=== PATIENT | female | born 1950 | race Caucasian/White ===

== ENCOUNTER 2022-06-07 16:04 | Outpatient (CLI) | payer MEDICARE, OTHER, SELFPAY ==
[2022-06-07 21:52] LABS: Albumin* 4.6 g/dL (3.3-5.0)
[2022-06-07 21:53] LABS: Chloride* 101 mmol/L (96-114); Potassium* 4.5 mmol/L (3.6-5.1); Sodium* 139 mmol/L (135-149)
[2022-06-07 21:55] LABS: Bilirubin Total* 0.6 mg/dL (0.1-1.5); Carbon Dioxide* 31 mmol/L (20-32); Cholesterol* 171 mg/dL (90-199); Creatinine* 0.7 mg/dL (0.5-1.5); Estimated Glomerular Filt Rate 91 ml/min
[2022-06-07 21:56] LABS: Alanine Aminotransferase* 34 U/L (4-35); Alkaline Phosphatase* 92 U/L (40-150); Aspartate Amino Transferase* 32 U/L (12-35); Blood Urea Nitrogen* 13 mg/dL (7-30); Calcium* 9.8 mg/dL (8.4-10.6); Glucose* 93 mg/dL (60-115); HDL Cholesterol* 95 mg/dL (>=50); LDL Cholesterol Calculated 54 mg/dL (<100); Total Protein* 7.1 g/dL (6.0-8.3); Triglycerides* 110 mg/dL (40-149)
[2022-06-07 22:28] LABS: Thyroid Stimulating Hormone* 0.673 uIU/mL (0.270-4.20)
== END 2022-06-07 16:05 | disposition home or self-care (01) ==
PROVIDERS: PCP Physician Assistant Medical; Visit Provider Physician Assistant Medical
DX: Z00.00 Encounter for general adult medical examination without abnormal findings (principal); E78.5 Hyperlipidemia, unspecified; E03.9 Hypothyroidism, unspecified; G47.9 Sleep disorder, unspecified; K86.89 Other specified diseases of pancreas
CPT/HCPCS: 80053; 80061; 84443

== ENCOUNTER 2022-06-18 14:52 | Outpatient (CLI) | payer MEDICARE, OTHER, SELFPAY ==
--- NOTE | 2022-06-18 15:00 | CRLHL7_ITS ---
For Patients: As a result of the Cures Act, medical imaging exams and procedure reports are released immediately into your electronic medical record. You may view this report before your referring provider. If you have questions, please contact your health care provider. CLINICAL HISTORY: atherosclerosis Comparison: 12/27/2020 TECHNIQUE: The carotid circulations and the vertebral arteries in the neck were examined with decker-scale ultrasound, color-flow and Doppler spectral analysis. Degrees of stenosis were determined using SRU 2002 Consensus Panel Criteria. FINDINGS: Sonographic images demonstrate bilateral atherosclerotic plaque formation, left greater than right, as before. No suspicious soft tissue mass. There was antegrade blood flow demonstrated within the vertebral arteries and the subclavian arteries demonstrated a normal triphasic waveform. The spectral Doppler tracings of the common carotid, internal and external carotid arteries demonstrate no abnormal turbulence or spectral broadening. There was no significant elevation of peak systolic blood flow which would indicate a hemodynamically-significant stenosis by SRU criteria. The ICA/CCA peak systolic velocity ratio measures 1.4 on the right and 1.1 on the left. IMPRESSION: Less than 50 percent stenosis of the internal carotid arteries bilaterally. Bilateral atherosclerotic disease. Dictated by Adrián Dominique MD @ 06/19/2022 9:45:57 AM (Electronically Signed)
--- NOTE | 2022-06-18 16:00 | CRLHL7_ITS ---
For Patients: As a result of the Century Cures Act, medical imaging exams and procedure reports are released immediately into your electronic medical record. You may view this report before your referring provider. If you have questions, please contact your health care provider. INDICATION: Atherosclerosis TECHNIQUE: Ultrasound aorta with color Doppler analysis. COMPARISON: None FINDINGS: The proximal abdominal aorta measures 1.4 centimeter x 1.3 centimeter, mid aorta measures 1.5 centimeter x 0.9 centimeter, distal aorta measures 1.2 centimeter x 1.1 centimeter, right common iliac artery measures 5 centimeter x 0.6 centimeter, and the left common iliac artery measures 0.4 centimeter x 0.6 centimeter. There are no periaortic abnormalities evident. Moderate diffuse atherosclerotic changes. IMPRESSION: Now sign of aneurysm. Moderate diffuse atherosclerotic changes. Dictated by Adrián Danielson MD @ 06/19/2022 8:06:52 AM (Electronically Signed)
== END 2022-06-18 14:53 | disposition home or self-care (01) ==
PROVIDERS: PCP Physician Assistant Medical; Visit Provider Physician Assistant Medical
DX: I65.29 Occlusion and stenosis of unspecified carotid artery (principal); I70.0 Atherosclerosis of aorta
CPT/HCPCS: 76775; 93880

== ENCOUNTER 2022-10-29 15:17 | Outpatient (CLI) | payer MEDICARE, OTHER, SELFPAY | END 2022-10-29 15:18 | disposition home or self-care (01) | PROVIDERS: PCP Physician Assistant Medical; Visit Provider Physician Assistant Medical | DX: N39.0 Urinary tract infection, site not specified (principal); B96.20 Unspecified Escherichia coli [E. coli] as the cause of diseases classified elsewhere | CPT/HCPCS: 87086; 87186 ==

== ENCOUNTER 2023-06-17 14:25 | Outpatient (CLI) | payer MEDICARE, OTHER, SELFPAY | END 2023-06-17 14:26 | disposition home or self-care (01) | PROVIDERS: PCP Physician Assistant Medical; Visit Provider Physician Assistant Medical | DX: E03.9 Hypothyroidism, unspecified (principal); E78.2 Mixed hyperlipidemia | CPT/HCPCS: 80053; 80061; 84443 ==

== ENCOUNTER 2024-07-20 13:02 | Outpatient (CLI) | payer MEDICARE, OTHER, SELFPAY | END 2024-07-20 13:03 | disposition home or self-care (01) | PROVIDERS: PCP Physician Assistant Medical; Referring Provider Physician Assistant Medical; Visit Provider Physician Assistant Medical | DX: E03.9 Hypothyroidism, unspecified (principal); E78.5 Hyperlipidemia, unspecified | CPT/HCPCS: 80053; 80061; 84443 ==

== ENCOUNTER 2024-08-11 08:23 | Outpatient (CLI) | payer MEDICARE, OTHER, SELFPAY ==
[2024-08-11] MEDS: SODIUM CHLORIDE 0.9 % (FLUSH) 10 ML SYRINGE IVF (11:18)
[2024-08-11] MEDS: REGADENOSON 0.4 MG/5 ML SYRINGE IVP (11:18)
--- NOTE | 2024-08-11 13:20 | W.PM.STED ---
Stress Test Note Date Date Seen: 08/11/24 Date of test: 08/11/24 Providers Primary care provider: Catina Yost Stress test physician: Ashley Berrios Stress Test Note Stress test ordered: Lexiscan Indication for test: Dyspnea, known reported atherosclerosis abdominal aorta Stress test medicine: Lexiscan Results discussion: Resting EKG: Sinus rhythm, rate 66 beats per minute. Resting blood pressure: 120/63 Stress test: Patient is consented on a nonwalking Lexiscan that has been ordered and agrees to proceed. She had nausea and sense of some epigastric discomfort but no chest pain with the infusion of the regadenoson. She had no chest pain. She had no noted arrhythmia but did have some PVCs. There was no definitive diagnostic EKG changes of ischemia on this test. Patient had stability of her blood pressure during this test. She is discharged in stable condition to have repeat post stress nuclear images. Impression: Subjectively negative, objectively negative EKG portion of this nonwalking Lexiscan. Follow up suggested: Obtain nuclear images, await this report for full formal diagnostic. Patient discharge in stable condition at this time.
== END 2024-08-11 08:24 | disposition home or self-care (01) ==
LOC: STRESS 08:26
PROVIDERS: PCP Physician Assistant Medical; Visit Provider Physician Assistant Medical
DX: R06.00 Dyspnea, unspecified (principal)
CPT/HCPCS: 78452; 93016; 93017; A9500; J2785

== ENCOUNTER 2024-08-14 12:26 | Outpatient (CLI) | payer MEDICARE, OTHER, SELFPAY ==
--- NOTE | 2024-08-14 13:00 | CRLHL7_ITS ---
For Patients: As a result of the Century Cures Act, medical imaging exams and procedure reports are released immediately into your electronic medical record. You may view this report before your referring provider. If you have questions, please contact your health care provider. Examination: US abdominal aorta Indication: re evaluate for progression, atherosclerosis of aorta. Abdominal aortic aneurysm screening. Technique: Friedman scale and color Doppler images of the aorta and common iliac arteries are obtained. Comparison: 06/18/2022 Findings: Proximal aorta: 2.8 x 2.7 cm Mid aorta: 2.0 x 2.0 cm Distal aorta: 1.5 x 1.5 cm Right common iliac artery: 0.9 x 0.9 cm Left common iliac artery: 0.9 x 0.9 cm Impression: No abdominal aortic aneurysm. Diffuse atherosclerosis noted. Dictated by Adrián Dominique MD @ 08/16/2024 8:55:36 PM (Electronically Signed)
--- NOTE | 2024-08-14 13:45 | CRLHL7_ITS ---
For Patients: As a result of the Century Cures Act, medical imaging exams and procedure reports are released immediately into your electronic medical record. You may view this report before your referring provider. If you have questions, please contact your health care provider. CLINICAL HISTORY: re evaluate for progression TECHNIQUE: The carotid circulations and the vertebral arteries in the neck were examined with decker-scale ultrasound, color-flow and Doppler spectral analysis. Degrees of stenosis were determined using SRU 2002 Consensus Panel Criteria. COMPARISON: 06/18/2022 FINDINGS: Sonographic images demonstrate bilateral atherosclerotic plaque formation without suspicious soft tissue mass. There was antegrade blood flow demonstrated within the vertebral arteries and the subclavian arteries demonstrated a normal triphasic waveform. The spectral Doppler tracings of the common carotid, internal and external carotid arteries demonstrate no abnormal turbulence or spectral broadening. There was significant elevation of peak systolic blood flow within the distal right ICA measuring 141 cm/second which would indicate a hemodynamically-significant stenosis by SRU criteria. The ICA/CCA peak systolic velocity ratio measures 1.9 on the right and 1.2 on the left. IMPRESSION: 50-69 percent stenosis of the right distal ICA. Less than 50 percent stenosis of the left ICA. Dictated by Adrián Dominique MD @ 08/16/2024 8:57:30 PM (Electronically Signed)
== END 2024-08-14 12:27 | disposition home or self-care (01) ==
LOC: US 12:26
PROVIDERS: PCP Physician Assistant Medical; Visit Provider Physician Assistant Medical
DX: Z13.6 Encounter for screening for cardiovascular disorders (principal); I65.29 Occlusion and stenosis of unspecified carotid artery; I70.0 Atherosclerosis of aorta
CPT/HCPCS: 76775; 93880

== ENCOUNTER 2024-08-31 12:58 | Outpatient (CLI) | payer MEDICARE, OTHER, SELFPAY ==
--- NOTE | 2024-08-31 13:00 | CRLHL7_ITS ---
For Patients: As a result of the Century Cures Act, medical imaging exams and procedure reports are released immediately into your electronic medical record. You may view this report before your referring provider. If you have questions, please contact your health care provider. INDICATION: Lung cancer screening. Significant smoking history. TECHNIQUE: Low-dose volumetric helical scanning of the thorax was performed without IV contrast material. Coronal and sagittal reconstructions were obtained. COMPARISON: None FINDINGS: A noncalcified 3 mm right lower lobe nodule is demonstrated on image 113 of series 2. Calcified granuloma is demonstrated in the right lower lobe base Emphysema is demonstrated. Scarring in the posterior right upper lobe and in the right lower lobe superior segment is demonstrated. There is no significant airway abnormality. No pleural effusion is demonstrated. There is no mediastinal or hilar lymph adenopathy. The heart size is normal. Calcified coronary arterial plaque is demonstrated. Images of the upper abdomen are unremarkable. IMPRESSION: 1. Negative for the purpose of lung cancer screening. Lung-RADS CATEGORY 2: BENIGN APPEARANCE OR BEHAVIOR: Continue annual screening with low-dose chest CT in 12 months. 2. Emphysema. Please note that all CT scans at this facility use dose modulation, iterative reconstruction, and/or weight-based dosing when appropriate to reduce radiation dose to as low as reasonably achievable. Dictated by Artemio Norris MD @ 09/01/2024 11:49:00 AM (Electronically Signed)
== END 2024-08-31 12:59 | disposition home or self-care (01) ==
LOC: CT 13:01
PROVIDERS: PCP Physician Assistant Medical; Visit Provider Physician Assistant Medical
DX: Z12.2 Encounter for screening for malignant neoplasm of respiratory organs (principal); F17.210 Nicotine dependence, cigarettes, uncomplicated; J43.9 Emphysema, unspecified; I77.89 Other specified disorders of arteries and arterioles; M79.662 Pain in left lower leg; I70.0 Atherosclerosis of aorta
CPT/HCPCS: 71271; 93924

== ENCOUNTER 2024-10-21 14:29 | Outpatient (CLI) | payer MEDICARE, SELFPAY | END 2024-10-21 14:30 | disposition home or self-care (01) | LOC: NFLDREF 10-24 06:58 | PROVIDERS: PCP Physician Assistant Medical; Referring Provider Physician Assistant Medical; Visit Provider Physician Assistant Medical | DX: E03.9 Hypothyroidism, unspecified (principal) | CPT/HCPCS: 84443 ==